=== PATIENT | female | born 1965 | race American Indian/Alaskan Native ===

== ENCOUNTER 2017-01-18 21:45 | Emergency (ER) | payer BC ==
[2017-01-18 21:51] VITALS: BMI 30.4
[2017-01-18 22:41] VITALS: RESP 18; TEMP 98.6
--- NOTE | 2017-01-18 22:46 | ED PDOC ---
Arrival/HPI - General Chief Complaint: Palpitations Time Seen by Provider: 01/18/17 22:04 Historian: Patient - History of Present Illness Narrative History of Present Illness (Text): 01/18/17 22:05 Ana Maria Cisneros is a 51 year old female, whose past medical history includes hypertension, who presents to the emergency department complaining of occasional palpitations tonight. Patient states that she has had a history of these symptoms in the past and just wants to be checked out. Patient admits to being a heavy coffee drinker and to running out of hypertension medication. Patient denies any associated chest pain, shortness of breath, or any other complaints at this time. Time/Duration: 4-6 hours Symptom Onset: Gradual Symptom Course: Unchanged Activities at Onset: Light Context: Home Past Medical History - Provider Review Nursing Documentation Reviewed: Yes - Infectious Disease Hx of Infectious Diseases: None - Tetanus Immunization Tetanus Immunization: Unknown - Reproductive Menopause: No - Cardiac Hx Hypertension: Yes - Psychiatric Hx Depression: No Hx Emotional Abuse: No Hx Physical Abuse: No Hx Substance Use: No - Surgical History Hx Gastric Bypass Surgery: Yes Hx Orthopedic Surgery: Yes (knee) - Anesthesia Hx Anesthesia: Yes Hx Anesthesia Reactions: No Hx Malignant Hyperthermia: No - Suicidal Assessment Feels Threatened In Home Enviroment: No Family/Social History - Physician Review Nursing Documentation Reviewed: Yes Family/Social History: No Known Family HX Smoking Status: Never Smoked Hx Alcohol Use: No Hx Substance Use: No Hx Substance Use Treatment: No Allergies/Home Meds Allergies/Adverse Reactions: Allergies No Known Allergies Allergy (Verified 08/03/11 15:34) Home Medications: Home Meds Medication Instructions Recorded Confirmed Amlodipine Besylate [Norvasc] 10 mg PO DAILY 12/06/12 12/06/12 Furosemide 40 mg PO DAILY 12/06/12 12/06/12 Metformin Hydrochloride [Metformin] 500 mg PO DAILY 12/06/12 12/06/12 Metoprolol Tartrate 100 mg PO DAILY 12/06/12 12/06/12 Montelukast [Singulair] 10 mg PO DAILY 12/06/12 12/06/12 Simvastatin [Simvastatin] 40 mg PO DAILY 12/06/12 12/06/12 Valsartan [Diovan] 320 mg PO DAILY 12/06/12 12/06/12 Review of Systems - Physician Review All systems were reviewed & negative as marked: Yes - Review of Systems Constitutional: absent: Fevers, Night Sweats Eyes: absent: Vision Changes ENT: absent: Hearing Changes Respiratory: absent: SOB, Cough Cardiovascular: Palpitations Gastrointestinal: absent: Abdominal Pain, Diarrhea, Nausea, Vomiting Genitourinary Female: absent: Dysuria, Frequency Musculoskeletal: absent: Arthralgias Skin: absent: Rash, Pruritis Neurological: absent: Headache, Dizziness Endocrine: absent: Diaphoresis Hemo/Lymphatic: absent: Adenopathy Psychiatric: absent: Anxiety, Depression Physical Exam Vital Signs Reviewed: Yes Vital Signs Temp Pulse Resp BP Pulse Ox 01/18/17 23:00 167/107 H 01/18/17 21:51 98.6 F 69 18 163/106 H 100 Temperature: Afebrile Blood Pressure: Hypertensive Pulse: Regular Respiratory Rate: Normal Appearance: Positive for: Well-Appearing, Non-Toxic, Comfortable Pain Distress: None Mental Status: Positive for: Alert and Oriented X 3 - Systems Exam Head: Present: Atraumatic, Normocephalic Pupils: Present: PERRL Extroacular Muscles: Present: EOMI Conjunctiva: Present: Normal Mouth: Present: Moist Mucous Membranes Pharnyx: Present: Normal Neck: Present: Normal Range of Motion Respiratory/Chest: Present: Clear to Auscultation, Good Air Exchange. No: Respiratory Distress, Accessory Muscle Use Cardiovascular: Present: Regular Rate and Rhythm, Normal S1, S2. No: Murmurs Abdomen: Present: Normal Bowel Sounds. No: Tenderness, Distention, Peritoneal Signs Back: Present: Normal Inspection Upper Extremity: Present: Normal Inspection. No: Cyanosis, Edema Lower Extremity: Present: Normal Inspection. No: Edema Neurological: Present: GCS=15, CN II-XII Intact, Speech Normal, Motor Func Grossly Intact, Normal Sensory Function Skin: Present: Warm, Dry, Normal Color. No: Rashes Psychiatric: Present: Alert, Oriented x 3, Normal Insight, Normal Concentration Medical Decision Making ED Course and Treatment: 01/18/17 22:53 Impression: 51 year old female complaining of occasional palpitations tonight. Differential Diagnosis included but are not limited to: Plan: -- EKG -- Chest x-ray -- Labs -- Norvasc -- Reassess and disposition Prior Visits: Notes and results from previous visits were reviewed. Patient was last seen in the emergency department on 12/06/12 for a fluttering sensation in the L chest for 4.5 hours that day. Patient was discharged home. Progress Notes: EKG: Ordered, reviewed, and independently interpreted the EKG. Rate: 62 BPM Rhythm: NSR Interpretation: Septal infarct. No acute changes Comparison: No change from previous EKG on 11/2012. 01/19/17 23:30 Reviewed radiology, chest x-ray shows no acute processes. - Lab Interpretations Lab Results: 01/18/17 22:55 01/18/17 22:55 Lab Results 01/18/17 22:55: WBC 7.6, RBC 4.05, Hgb 11.7 L, Hct 35.6 L, MCV 87.9, MCH 28.9, MCHC 32.9, RDW 13.2, Plt Count 297, MPV 10.7 01/18/17 22:55: PT 11.1, INR 1.02, APTT 30.9 01/18/17 22:55: Sodium 139, Potassium 3.6, Chloride 102, Carbon Dioxide 29, Anion Gap 12, BUN 21, Creatinine 0.9, Est GFR ( Amer) > 60, Est GFR (Non- Af Amer) > 60, Random Glucose 98, Calcium 9.2, Total Bilirubin 0.4, AST 42 H, ALT 33, Alkaline Phosphatase 57, Lactate Dehydrogenase 442, Total Creatine Kinase 272 H, CK-MB (CK-2) Pending, CK-MB (CK-2) % Pending, Troponin I < 0.01, Total Protein 7.5, Albumin 4.2, Globulin 3.3, Albumin/Globulin Ratio 1.3 I have reviewed the lab results: Yes - RAD Interpretation Radiology Orders: 01/18/17 22:45 CHEST PORTABLE [RAD] Stat - Medication Orders Current Medication Orders: Discontinued Medications Amlodipine Besylate (Norvasc) 10 mg PO STAT STA Stop: 01/18/17 22:48 Last Admin: 01/18/17 23:00 Dose: 10 mg IMMANUEL Blood Pressure Document 01/18/17 23:00 JOL (Rec: 01/18/17 23:44 [id number] [id number]) Blood Pressure Blood Pressure (100/60-150/90 mm Hg) 167/107 - Scribe Statement The provider has reviewed the documentation as recorded by the Bonnie Gonzales Provider Scribe Attestation: All medical record entries made by the Scribe were at my direction and personally dictated by me. I have reviewed the chart and agree that the record accurately reflects my personal performance of the history, physical exam, medical decision making, and the department course for this patient. I have also personally directed, reviewed, and agree with the discharge instructions and disposition. Disposition/Present on Arrival - Present on Arrival Any Indicators Present on Arrival: No History of DVT/PE: No History of Uncontrolled Diabetes: No Urinary Catheter: No History of Decub. Ulcer: No History Surgical Site Infection Following: None - Disposition Have Diagnosis and Disposition been Completed?: Yes Diagnosis: Palpitations Disposition: HOME/ ROUTINE Disposition Time: 00:30 Patient Plan: Discharge Patient Problems: Current Active Problems Problem Status Onset Palpitations Acute Condition: GOOD Discharge Instructions (ExitCare): Palpitations (ED) Additional Instructions: Avoid caffeinated beverages/take your meds as prescribed/follow up with your doctor this week Prescriptions: amLODIPine [Norvasc] 10 mg PO DAILY #30 tab Referrals: Funmilayo Jo DO [Primary Care Provider] - Follow up with primary Forms: [employer] ([place])
[2017-01-18 23:21] LABS: HEMATOCRIT 35.6 % (36.0-48.0); MEAN CELL VOLUME 87.9 fl (80.0-105.0); MEAN CORPUSCULAR HEMOGLOBIN 28.9 pg (25.0-35.0); MEAN CORPUSCULAR HGB CONC 32.9 g/dl (31.0-37.0); MEAN PLATELET VOLUME 10.7 fl (7.0-11.0); RED CELL DISTRIBUTION WIDTH 13.2 % (11.5-14.5); WHITE BLOOD COUNT 7.6 10^3/ul (4.5-11.0)
[2017-01-18 23:32] LABS: INR 1.02 (0.93-1.08); PARTIAL THROMBOPLASTIN TIME 30.9 Seconds (25.1-36.5)
[2017-01-19] LABS: ALB/GLOB RATIO 1.3 (1.1-1.8); ALKALINE PHOSPHATASE 57 U/L (38-126); ALT/SGPT 33 U/L (7-56); AST/SGOT 42 U/L (14-36); BILIRUBIN,TOTAL 0.4 mg/dL (0.2-1.3); BLOOD UREA NITROGEN 21 mg/dL (7-21); CALCIUM 9.2 mg/dL (8.4-10.5); CARBON DIOXIDE 29 mmol/L (21-33); CHLORIDE 102 mmol/L (98-107); GFR AFRICAN-AMERICAN > 60; GLUCOSE,RANDOM 98 mg/dL (70-110); POTASSIUM 3.6 mmol/L (3.6-5.0); SODIUM 139 mmol/L (132-148); TOTAL PROTEIN 7.5 g/dL (5.8-8.3)
[2017-01-19 00:12] LABS: TROPONIN I < 0.01 ng/mL
[2017-01-19 00:48] VITALS: BP 140/78; PULSE 87; O2SAT 99
--- NOTE | 2017-01-19 08:38 | RAD ---
HISTORY: palpitations COMPARISON: 03/29/2015 FINDINGS: LUNGS: No active pulmonary disease. PLEURA: No significant pleural effusion identified, no pneumothorax apparent. CARDIOVASCULAR: Mild cardiomegaly OSSEOUS STRUCTURES: No significant abnormalities. VISUALIZED UPPER ABDOMEN: Normal. OTHER FINDINGS: None. IMPRESSION: No active disease.
--- NOTE | 2017-01-19 16:47 | CARD ---
APPROVED REPORT EKG Measurement Heart [id number] <Conclusion> Normal sinus rhythm Septal infarct, age undetermined Abnormal ECG
== END 2017-01-19 00:50 | disposition home or self-care (01) ==
LOC: ED 21:45
DX: R00.2 Palpitations (principal); I10 Essential (primary) hypertension

== ENCOUNTER 2018-03-19 06:33 | Day surgery (SDC) | payer BC ==
[2018-03-19] MEDS ORDERED: Propofol 10 mg/ml Inj (20 ML) ONE ×2 (07:34→07:56)
[2018-03-19] MEDS ORDERED: Sodium Chloride 0.9% 1,000 ML IV SCH (08:15)
[2018-03-19 08:20] VITALS: O2SAT 100
[2018-03-19 08:55] VITALS: BP 130/94; PULSE 68; RESP 18; TEMP 97.7
== END 2018-03-19 09:16 | disposition home or self-care (01) ==
LOC: ENDO 06:33
PROVIDERS: ATTEND Internal Medicine Gastroenterology
DX: Z12.11 Encounter for screening for malignant neoplasm of colon (principal); K64.1 Second degree hemorrhoids; E11.9 Type 2 diabetes mellitus without complications; I10 Essential (primary) hypertension; E78.00 Pure hypercholesterolemia, unspecified
CPT/HCPCS: 45378; 82948; J2704; J7030

== ENCOUNTER 2018-04-12 06:32 | Outpatient (CLI) | payer BC | END 2018-04-12 06:33 | disposition home or self-care (01) | LOC: CARDIO 06:32 ==